=== PATIENT | female | born 1955 | race Caucasian/White ===

== ENCOUNTER → 2016-12-21 | Outpatient (CLI) | payer BC ==
[~2016-12-21] MED LIST: CALC1CAP8 PO; GLUC1TAB91 PO; LACT1CAP35 PO; LOPE2CAP94 PO; MULT-6 PO; POTA99TA2 PO
[2016-12-21 09:53] LABS: HEMATOCRIT 43.2 % (34.6-47.8); HEMOGLOBIN 14.6 g/dL (11.7-16.4); WHITE BLOOD COUNT 4.7 x10^3/uL (3.4-10)
[2016-12-21 10:08] LABS: ASPARTATE AMINO TRANSFERASE 26 U/L (15-37); BLOOD UREA NITROGEN 18 mg/dL (7-18)
== END | disposition home or self-care (01) ==
LOC: STAR 08:23
PROVIDERS: ATTEND Orthopaedic Surgery Adult Reconstructive Orthopaedic Surgery
DX: M17.12 Unilateral primary osteoarthritis, left knee (principal); M17.11 Unilateral primary osteoarthritis, right knee
CPT/HCPCS: 36415; 80053; 81003; 85025; 85610; 85730; 87081

== ENCOUNTER 2016-12-28 07:43 | Inpatient (IN) | payer BC, OTHER ==
[~2016-12-28] VITALS: Ht 162.6 cm; Wt 64.2 kg
[2016-12-28] MEDS ORDERED: LACTATED RINGERS 1,000 ML IV SCH (07:57)
[2016-12-28] MEDS ORDERED: VANCOMYCIN PER PHARMACY MC PRN (08:30)
[2016-12-28] MEDS ORDERED: VANCOMYCIN 1,200 MG in SODIUM CHLORIDE 0.9% 250 ML IV ONE (08:30)
[2016-12-28] MEDS ORDERED: MIDAZOLAM 1 MG/ML, 2ML ONE (08:38)
[2016-12-28] MEDS ORDERED: KETAMINE 10 MG/ML, 20ML ONE (08:38)
[2016-12-28] MEDS ORDERED: PROPOFOL 50 ML ONE ×3 (08:38→13:11)
[2016-12-28] MEDS ORDERED: FENTANYL PF 100 MCG/2ML ONE (08:39)
[2016-12-28] MEDS ORDERED: ONDANSETRON 2MG/ML, 2ML ONE (08:39)
[2016-12-28] MEDS ORDERED: DEXAMETHASONE 4 MG/ML, 1ML ONE ×4 (08:39→11:30)
[2016-12-28] MEDS ORDERED: CEFAZOLIN 1,000 MG ONE (08:39)
[2016-12-28] MEDS ORDERED: PROPOFOL 10 MG/ML, 20ML ONE (08:39)
[2016-12-28] MEDS ORDERED: cloniDINE/PF 100 MCG/ML, 10 ML ONE (08:51)
[2016-12-28] MEDS ORDERED: GABAPENTIN 300 MG CAPSULE ONE (09:59)
[2016-12-28] MEDS ORDERED: BACITRACIN 50,000 UNIT ONE (10:00)
[2016-12-28] MEDS ORDERED: ACETAMINOPHEN 500 MG TABLET ONE (10:00)
[2016-12-28] MEDS ORDERED: GABAPENTIN 300 MG CAPSULE PO STA (10:01)
[2016-12-28] MEDS ORDERED: ACETAMINOPHEN 500 MG TABLET PO STA (10:01)
[2016-12-28] MEDS ORDERED: EPHEDRINE 50 MG/ML, 1ML ONE (10:21)
[2016-12-28] MEDS ORDERED: TRANEXAMIC ACID 100 MG/ML, 10ML ONE (10:21)
[2016-12-28] MEDS: SODIUM CHLORIDE 0.9% 1,000 ML IV SCH ×2 (10:24→20:24)
[2016-12-28] MEDS ORDERED: MAGNESIUM HYDROXIDE 8%, 30ML UDC PO PRN (10:30)
[2016-12-28] MEDS ORDERED: ONDANSETRON 2MG/ML, 2ML IV PRN (10:30)
[2016-12-28] MEDS ORDERED: ONDANSETRON 4 MG TABLET PO PRN (10:30)
[2016-12-28] MEDS ORDERED: ZOLPIDEM 5MG TABLET PO PRN (10:30)
[2016-12-28] MEDS ORDERED: HYDROmorphone 1 MG/ML, 1ML IV PRN ×2 (10:30→11:30)
[2016-12-28] MEDS: TAMSULOSIN 0.4 MG CAP.ER.24H PO SCH (10:30)
[2016-12-28] MEDS ORDERED: PROMETHAZINE 25 MG/ML, 1ML IM PRN (10:30)
[2016-12-28] MEDS ORDERED: ALUMINUM/MAG/SIMETHICONE 30 ML UDC PO PRN (10:30)
[2016-12-28] MEDS ORDERED: SENNA/DOCUSATE TABLET PO PRN (10:30)
[2016-12-28] MEDS ORDERED: DIPHENHYDRAMINE 50 MG CAPSULE PO PRN (10:30)
[2016-12-28] MEDS: ACETAMINOPHEN 500 MG TABLET PO SCH ×2 (10:30→18:46)
[2016-12-28] MEDS ORDERED: BISACODYL 10 MG SUPP PR PRN (10:30)
[2016-12-28] MEDS ORDERED: DIAZEPAM 5 MG TABLET PO PRN (10:30)
[2016-12-28] MEDS ORDERED: LORazepam 1MG TABLET PO PRN (10:30)
[2016-12-28] MEDS ORDERED: PROMETHAZINE 12.5 MG SUPP PR PRN (10:30)
[2016-12-28] MEDS ORDERED: LIDOCAINE-MPF 2% ,5ML ONE ×3 (11:27→13:11)
[2016-12-28] MEDS ORDERED: BUPIVACAINE/PF 0.25% ONE (11:27)
[2016-12-28] MEDS ORDERED: LORazepam 2 MG/ML, 1ML IVPush PRN (11:30)
[2016-12-28] MEDS ORDERED: ONDANSETRON 2MG/ML, 2ML IVPush PRN (11:30)
[2016-12-28] MEDS ORDERED: MEPERIDINE/PF 25MG/0.5ML IVPush PRN (11:30)
[2016-12-28] MEDS ORDERED: OXYcodone 5 MG/5 ML ORAL.SOL UDC PO PRN (11:30)
[2016-12-28] MEDS ORDERED: PROMETHAZINE 25 MG/ML, 1ML IV PRN (11:30)
[2016-12-28] MEDS ORDERED: DIAZEPAM 5 MG/ML, 2ML IVPush PRN (11:30)
[2016-12-28] MEDS ORDERED: ALBUTEROL/IPRATROPIUM 2.5MG/0.5MG, 3 ML NPPB PRN (11:30)
[2016-12-28] MEDS ORDERED: LABETALOL 5MG/ML, 20ML IV PRN (11:30)
[2016-12-28] MEDS ORDERED: MIDAZOLAM 1 MG/ML, 2ML IV PRN (11:30)
[2016-12-28] MEDS ORDERED: hydrALAzine 20 MG/ML, 1ML IV PRN (11:30)
[2016-12-28] MEDS ORDERED: FENTANYL PF 100 MCG/2ML IV PRN (11:30)
[2016-12-28] MEDS ORDERED: HYDROmorphone 1 MG/ML, 1ML ONE ×2 (13:47→14:11)
[2016-12-28] MEDS ORDERED: OXYcodone 5 MG/5 ML ORAL.SOL UDC ONE (14:11)
[2016-12-28] MEDS ORDERED: ASPIRIN 325 MG TABLET EC PO SCH (18:00)
[2016-12-28] MEDS: OXYcodone IR 5MG TABLET PO PRN ×2 (18:45→22:32)
[2016-12-28] MEDS: CEFAZOLIN PMX 1GM/50ML 50 ML IVPB SCH (18:46)
[2016-12-28] MEDS: DOCUSATE 100 MG CAPSULE PO SCH (20:53)
[2016-12-28 21:00] VITALS: BP 113/68
[2016-12-29 00:04] VITALS: BP 97/57
[2016-12-29] MEDS: OXYcodone IR 5MG TABLET PO PRN ×6 (02:31→22:50)
[2016-12-29] MEDS: CEFAZOLIN PMX 1GM/50ML 50 ML IVPB SCH (02:37)
[2016-12-29] MEDS: ACETAMINOPHEN 500 MG TABLET PO SCH ×3 (02:37→18:04)
[2016-12-29 04:45] VITALS: BP 96/52
[2016-12-29 05:20] LABS: BLOOD UREA NITROGEN 22 mg/dL (7-18)
[2016-12-29] MEDS: SODIUM CHLORIDE 0.9% 1,000 ML IV SCH ×3 (06:24→19:55)
[2016-12-29] MEDS: ASPIRIN 81 MG TABLET EC PO SCH ×2 (06:39→18:04)
[2016-12-29 07:24] VITALS: BP 100/58
[2016-12-29] MEDS: TAMSULOSIN 0.4 MG CAP.ER.24H PO SCH (09:00)
[2016-12-29] MEDS: DOCUSATE 100 MG CAPSULE PO SCH ×2 (09:33→19:55)
[2016-12-29 12:44] VITALS: BP 95/46
[2016-12-29 19:12] VITALS: BP 110/65
[2016-12-30 01:45] VITALS: BP 97/60
[2016-12-30] MEDS: ACETAMINOPHEN 500 MG TABLET PO SCH ×2 (02:41→10:54)
[2016-12-30] MEDS: OXYcodone IR 5MG TABLET PO PRN ×3 (02:42→10:54)
[2016-12-30] MEDS: ASPIRIN 81 MG TABLET EC PO SCH (05:22)
[2016-12-30 07:14] VITALS: BP 117/54
[2016-12-30] MEDS: TAMSULOSIN 0.4 MG CAP.ER.24H PO SCH (08:49)
[2016-12-30] MEDS: DOCUSATE 100 MG CAPSULE PO SCH (08:55)
[2016-12-30 11:10] VITALS: BP 115/52
[2016-12-30] MEDS ORDERED: ACET325T26 PO (11:16)
[2016-12-30] MEDS ORDERED: ASPI-621 PO (11:17)
[2016-12-30] MEDS ORDERED: OXYC5CAP2 PO (11:17)
[2016-12-30] MEDS ORDERED: DOCU-131 PO (11:17)
[2016-12-30] MEDS ORDERED: CELE200C PO (11:18)
== END 2016-12-30 11:30 | disposition home or self-care (01) | DRG 462 ==
LOC: ORIP 07:43 → 4NOR 15:40 → DCLOUNGE 12-30 11:13
PROVIDERS: ADMIT Orthopaedic Surgery Adult Reconstructive Orthopaedic Surgery; ATTEND Orthopaedic Surgery Adult Reconstructive Orthopaedic Surgery
PROC: 0SRD0J9 Replacement of Left Knee Joint with Synthetic Substitute, Cemented, Open Approach (ICD-10-PCS; 2016-12-28)
PROC: 0SRC0J9 Replacement of Right Knee Joint with Synthetic Substitute, Cemented, Open Approach (ICD-10-PCS; principal; 2016-12-28 09:30)
DX: M17.11 Unilateral primary osteoarthritis, right knee (principal); M17.12 Unilateral primary osteoarthritis, left knee
CPT/HCPCS: 36415; 80048; 82040; 85018; C1713; J0690; J1100; J1170; J2250; J2405; J2704; J3010; J3370; J3490; C1776; J0735; J7050; J7120